=== PATIENT | male | born 1985 | race Caucasian/White ===

== ENCOUNTER 2021-11-11 20:00 | Emergency (ER) | payer OTHER ==
[~2021-11-11] VITALS: Ht 182.9 cm; Wt 105.4 kg
[2021-11-11 20:14] VITALS: BP 141/86
[2021-11-11] MEDS ORDERED: LIDOCAINE 1% Multi-Dose 20 ML VIAL. IJ ONE (20:30)
--- NOTE | 2021-11-11 21:19 | PHYS DOC ---
Past History Past Surgical History: Appendectomy, Other Additional Past Surgical Histo: HERNIA, LEFT ELBOW (CORIE OVIEDO APRN) General Adult EDM: Chief Complaint: FINGER INJURY HPI: HPI: Patient is a 36-year-old male presents with right, index finger laceration. Patient states that he was cutting down boxes to put out to the trash when he cut his finger with a box knife. Denies pain. Patient was able to get the laceration to quit bleeding at home. Denies medical history. (CORIE OVIEDO APRN) Review of Systems: Review of Systems: ROS At least 10 ROS systems have been reviewed and are negative except as documented in the HPI. General: Negative except as outlined in HPI above. Skin: Negative except as outlined in HPI above. HEENT: Negative except as outlined in HPI above. Neck: Negative except as outlined in HPI above. Respiratory: Negative except as outlined in HPI above.. Cardiovascular: Negative except as outlined in HPI above. Abdomen: Negative except as outlined in HPI above. : Negative except as outlined in HPI above. Back/MSK: Negative except as outlined in HPI above. Neuro: Negative except as outlined in HPI above. Psych: Negative except as outlined in HPI above. (CORIE OVIEDO APRN) Current Medications: Current Meds: Current Medications Medications (Trade) Dose Ordered Sig/Christal Start Time Stop Time Status Last Admin Dose Admin Lidocaine HCl 20 ml 1X ONCE 11/11/21 20:30 11/11/21 20:31 DC 11/11/21 20:28 20 ML (CORIE OVIEDO APRN) Allergies: Allergies: Allergies Coded Allergies Type Severity Reaction Last Updated Verified cefaclor Allergy Unknown 11/11/21 Yes (CORIE OVIEDO APRN) Physical Exam: PE: Constitutional: Well developed, well nourished, no acute distress, non-toxic appearance. [] HENT: Normocephalic, atraumatic, bilateral external ears normal, oropharynx moist, no oral exudates, nose normal. [] Eyes: PERRLA, EOMI, conjunctiva normal, no discharge. [] Neck: Normal range of motion, no tenderness, supple, no stridor. [] Cardiovascular:Heart rate regular rhythm, no murmur [] Lungs & Thorax: Bilateral breath sounds clear to auscultation [] Abdomen: Bowel sounds normal, soft, no tenderness, no masses, no pulsatile masses. [] Skin: Laceration to right, index finger. Range of motion intact. Sensations i ntact. Back: No tenderness, no CVA tenderness. [] Extremities: No tenderness, no cyanosis, no clubbing, ROM intact, no edema. [] Neurologic: Alert and oriented X 3, normal motor function, normal sensory function, no focal deficits noted. [] Psychologic: Affect normal, judgement normal, mood normal. [] (CORIE OVIEDO APRN) Current Patient Data: Vital Signs: Vital Signs Date Time Temp Pulse Resp B/P (MAP) Pulse Ox O2 Delivery O2 Flow Rate FiO2 11/11/21 20:14 98.0 82 20 141/86 (104) 99 Room Air (CORIE OVIEDO APRN) EKG: EKG: [] (CORIE OVIEDO APRN) Radiology/Procedures: Radiology/Procedures: [] (CORIE OVIEDO APRN) Heart Score: C/O Chest Pain: No Risk Factors: Risk Factors: DM, Current or recent (<one month) smoker, HTN, HLP, family history of CAD, obesity. Risk Scores: Score 0 - 3: 2.5% MACE over next 6 weeks - Discharge Home Score 4 - 6: 20.3% MACE over next 6 weeks - Admit for Clinical Observation Score 7 - 10: 72.7% MACE over next 6 weeks - Early Invasive Strategies (CORIE OVIEDO APRN) Course & Med Decision Making: Course & Med Decision Making Pertinent Labs and Imaging studies reviewed. (See chart for details) [] 36-year-old male presents with right, index finger laceration. Laceration was superficial. Dermabond applied to finger. Covered with gauze. (CORIE OVIEDO APRN) Dragon Disclaimer: Dragon Disclaimer: This electronic medical record was generated, in whole or in part, using a voice recognition dictation system. (CORIE OVIEDO APRN) Departure Departure: Impression: Primary Impression: Laceration Disposition: 01 HOME / SELF CARE / HOMELESS Condition: STABLE Referrals: PCP,NO (PCP) Patient Instructions: Laceration Care, Adult, [id number] Additional Instructions: You were seen in the emergency room for laceration to finger. Dermabond was applied. Your tetanus was also updated. Try and keep it clean and dry. If you start having drainage from the area, warmth, redness, increase in pain follow- up with your PCP or return to ER. Glue will fall off on its own in the next 7 to 10 days. Do not pick at it. Ibuprofen or Tylenol if you have discomfort. EMERGENCY DEPARTMENT GENERAL DISCHARGE INSTRUCTIONS Thank you for coming to [facility] (ED) today and trusting us with you care. We trust that you had a positivie experience in our Emergency Department. If you wish to speak to the department management, you may call the director at [phone]. YOUR FOLLOW UP INSTRUCTIONS ARE FOLLOWS: 1. Do you have a private Doctor? If you do not have a private doctor, please ask for a resource list of physicians or clinics that may be able to assist you with follow up care. 2. The Emergency Physician has interpreted your x-rays. The X-Ray specialist will also review them. If there is a change in the findings, you will be notified in 48 hours when at all possible. 3. A lab test or culture has been done, your results will be reviewed and you will be notified if you need a change in treatment. ADDITIONAL INSTRUCTIONS AND INFORMATION: 1. Your care today has been supervised by a physician who is specially trained in emergency care. Many problems require more than one evaluation for a complete diagnosis and treatment. We recommend that you schedule your follow up appointment as recommended to ensure complete treatment of you illness or injury. If you are unable to obtain follow up care and continue to have a problem, or if your condition worsens, we recommend that you return to the ED. 2. We are not able to safely determine your condition over the phone nor are we able to give sound medical advice over the phone. For these safety reasons, if you call for medical advice we will ask you to come to the ED for further evaluation. 3. If you have any questions regarding these discharge instructions please call the ED at [phone]. SAFETY INFORMATION: In the interest of safety, wellness, and injury prevention; we encourage you to wear your sealbelt, if you smoke; quite smoking, and we encourage family to use a protective helmet for bicycling and other sporting events that present an increased risk for head injury. IF YOUR SYMPTOMS WORSEN OR NEW SYMPTOMS DEVELOP, OR YOU HAVE CONCERNS ABOUT YOUR CONDITION; OR IF YOUR CONDITION WORSENS WHILE YOU ARE WAITING FOR YOUR FOLLOW UP APPOINTMENT; EITHER CONTACT YOUR PRIMARY CARE DOCTOR, THE PHYSICIAN WHOSE NAME AND NUMBER YOU WERE GIVEN, OR RETURN TO THE ED IMMEDIATELY. CORIE OVIEDO APRN November 11, 2021 21:19 ARMAAN LEIVA MD Nov 19, 2021 07:34
[2021-11-11] MEDS ORDERED: DIPHTH,PERTUSS(ACELL),TET TOX 0.5 ML DISP.SYRIN. VAX IM ONE (21:30)
== END 2021-11-11 21:29 | disposition home or self-care (01) ==
LOC: ER 20:00
DX: S61.210A Laceration without foreign body of right index finger without damage to nail, initial encounter (principal); W26.0XXA Contact with knife, initial encounter; Y93.89 Activity, other specified; Y92.89 Other specified places as the place of occurrence of the external cause; Y99.8 Other external cause status
CPT/HCPCS: 12001; 90471; 90715; 99283